=== PATIENT | female | born 1970 | race Caucasian/White ===

== ENCOUNTER 2018-06-07 09:35 | Inpatient (IN) ==
--- NOTE | 2018-05-08 08:33 | History & Physical Report ---
Date of Service May 08, 2018 Date of Surgery 06-07-18 Assessment & Plan (1) Osteoarthritis of left knee: Risks and benefits of procedure discussed in detail today, patient would like to proceed with a left total knee replacement @ [facility] on 06-07-18 as scheduled. will obtain medical clearance prior to surgery as well as obtain PATs at [facility]. Will place on ASA 81mg po bid x 1 month post op, f/u 2 weeks post op for routine post-operative care and xray, sooner if having any problems. will make arrangements for HHPT at the time of discharge. History of Present Illness Chief Complaint: left knee pain Primary Care Provider: NO PCP Ms Self is a 47 year old female who is here for a follow up of left knee pain, presents for pre-op evaluation prior to left total knee replacement on 06/07/18. She states that the symptoms have been chronic non-traumatic. The symptoms occur constantly with intermittent worsening. Currently the patient states that the symptoms are moderate-severe. The pain is described as aching and deep with occasional sharp pain. She rates her current pain as 6/10 and her worst is 8/10. The symptoms are aggravated by daily activities including walking, daily activities, first steps while awake and kneeling. In addition to knee pain, she is also experiencing difficulty bending, limping, instability, stiffness and weakness. Pt ambulates with straight cane. The patient has had a previous x-ray and bone scan. Prior pain medications include Tylenol as well as Ibuprofen and Aleve. Patient has had previous therapy. She has had prior arthroscopic surgery. Pt. had Left knee surgery July 2017 and Right knee surgery [address] Dean with continued pain and ongoing problems. Allergies Allergy/AdvReac Type Severity Reaction Status Date / Time diphenhydramine AdvReac Unknown AGITATION Verified 04/26/18 11:43 Home Medications Home Medications Medication Instructions Recorded Confirmed Type albuterol sulfate [Ventolin HFA] 2 puff INHALATION QID PRN 04/26/18 04/26/18 History amitriptyline 150 mg PO HS 04/26/18 04/26/18 History bupropion HCl [Wellbutrin SR] 150 mg PO BID 04/26/18 04/26/18 History furosemide [Lasix] 40 mg PO QAM 04/26/18 04/26/18 History levothyroxine [Synthroid] 175 mcg PO QAM 04/26/18 04/26/18 History mirabegron [Myrbetriq] 25 mg PO QAM 04/26/18 04/26/18 History pantoprazole [Protonix] 40 mg PO QAM 04/26/18 04/26/18 History propranolol 160 mg PO QAM 04/26/18 04/26/18 History topiramate [Topamax] 50 mg PO BIDM 04/26/18 04/26/18 History Past Med/Surg History Medical History Anxiety Asthma Depression GERD (gastroesophageal reflux disease) Hypothyroidism Migraine Rheumatoid arthritis Urinary incontinence Surgical History History of ankle surgery x2 History of cholecystectomy History of hysterectomy total History of surgery vocal cords- ? patient think d/t goiters unsure Hx of arthroscopic knee surgery both Hx of shoulder surgery right Hx of tooth extraction Family History Mother FHx: cancer Mother Family history of diabetes mellitus Social History Preferred Language: Icelandic Communication Ability: Effective Beliefs That Will Affect Care: None Current Living Situation: Alone Other Information That Helps Us Care for You: No Feels Safe at Home: Yes Safety Concerns: Feels Safe At This Time Smoking Status: Current every day smoker Hx Alcohol Use: No Hx Substance Use: No Review of Systems All systems reviewed & are unremarkable except as noted in HPI & below Constitutional: no fever, no chills and no sweats Respiratory: no cough, no dyspnea and no dyspnea on exertion Cardiovascular: no chest pain, no dyspnea and no orthopnea Gastrointestinal: no nausea and no vomiting Integumentary: no rash and no lesions Physical Exam Vital Signs (Past 24 Hours): Ht: 5ft 8inches Wt: 136kg BMI: 45.6 BP: 122/76 Pulse: 78 Constitutional: WD/WN, vitals as above no acute distress Respiratory: normal respiratory effort, lungs clear to auscultation no respiratory distress, no labored breathing and does not use accessory muscles Cardiovascular: RRR, no murmur, no edema Gastrointestinal (Abdomen): normal bowel sounds, soft, nontender, no hepatosplenomegaly Musculoskeletal: Left Knee Physical Exam Patient ambulates with a limp, uses a cane, overall varus alignment. There is no erythema or warmth, no atrophy or ecchymosis noted, mild suprapatellar effusion, maximum tenderness over her medial joint line negative patellar apprehension , mild crepitation with motion, suyapa's Negative, posterior drawer negative. positive atilio's medially, negative anterior drawer, knee stable with valgus/varus stress. no extensor lag. pain with active range of motion, AROM 0/3/110, Passive ROM 0/3/115. No pain with active/passive ROM of ankle. Lower Extremity Strength normal. Lower Extremity Neuro-vascular is normal Results & Data Diagnostic Findings Left Knee X-ray on 04-03-18 showing advanced degenerative changes to the left knee, greatest medial compartment, showing joint space narrowing, osteophyte formation and subchondral sclerosis. no acute bony pathology noted. no loose bodies noted.
--- NOTE | 2018-05-08 11:02 | PAT Medication Instructions ---
Medication Instructions Date of Service May 08, 2018 Home Medications albuterol sulfate [Ventolin HFA] 2 puff INHALATION QID NEEDED amitriptyline 150 mg PO HS bupropion HCl [Wellbutrin SR] 150 mg PO BID furosemide [Lasix] 40 mg PO QAM levothyroxine [Synthroid] 175 mcg PO QAM mirabegron [Myrbetriq] 25 mg PO QAM pantoprazole [Protonix] 40 mg PO QAM propranolol 160 mg PO QAM topiramate [Topamax] 50 mg PO BIDM DO NOT take the morning of surgery furosemide [Lasix] 40 mg PO QAM mirabegron [Myrbetriq] 25 mg PO QAM Take morning of surgery With a small sip of water, OTHERWISE NOTHING TO EAT OR DRINK AFTER MIDNIGHT: albuterol sulfate [Ventolin HFA] 2 puff INHALATION QID NEEDED bupropion HCl [Wellbutrin SR] 150 mg PO BID levothyroxine [Synthroid] 175 mcg PO QAM pantoprazole [Protonix] 40 mg PO QAM propranolol 160 mg PO QAM topiramate [Topamax] 50 mg PO BIDM Take evening before surgery albuterol sulfate [Ventolin HFA] 2 puff INHALATION QID NEEDED amitriptyline 150 mg PO HS bupropion HCl [Wellbutrin SR] 150 mg PO BID topiramate [Topamax] 50 mg PO BIDM Other Notes If you have any questions please call us at [phone] or [phone] or [phone] or [phone]
--- NOTE | 2018-05-08 13:09 | Anesthesiology Consultation ---
Date of Service May 08, 2018 Assessment & Plan (1) Encounter for pre-operative examination: Chart Review Chart Review: Acceptable Risk for Surgery and Patient seen in Pre Admission Testing Consults Requested medical (Dr. Olsen ([facility]) Patient was seen at PCP's office on 05/11/18. Per note, "Patient is optimized for the surgery" Teaching & Discussion Pre-Anesthesia Teaching/Discussion Notes: Instructed NPO after midnight before surgery, except medications with 15 cc of water. Medication instructions provided according to the PAT guidelines. History Surgery Operation Date: 06/07/18 08:30 Proposed Procedures p Left Total Knee Arthroplasty - Carlitos Chavez DO Height/Weight Height: 5 ft 8 in Weight: 135.3 kg Allergies Allergy/AdvReac Type Severity Reaction Status Date / Time diphenhydramine AdvReac Unknown AGITATION Verified 04/26/18 11:43 Medications Home Medications Medication Instructions Recorded Confirmed Last Taken albuterol sulfate [Ventolin HFA] 2 puff INHALATION QID PRN 04/26/18 04/26/18 Unknown amitriptyline 150 mg PO HS 04/26/18 04/26/18 Unknown bupropion HCl [Wellbutrin SR] 150 mg PO BID 04/26/18 04/26/18 Unknown furosemide [Lasix] 40 mg PO QAM 04/26/18 04/26/18 Unknown levothyroxine [Synthroid] 175 mcg PO QAM 04/26/18 04/26/18 Unknown mirabegron [Myrbetriq] 25 mg PO QAM 04/26/18 04/26/18 Unknown pantoprazole [Protonix] 40 mg PO QAM 04/26/18 04/26/18 Unknown propranolol 160 mg PO QAM 04/26/18 04/26/18 Unknown topiramate [Topamax] 50 mg PO BIDM 04/26/18 04/26/18 Unknown Past Medical History Medical History Anxiety Asthma Depression GERD (gastroesophageal reflux disease) Hypothyroidism Migraine Rheumatoid arthritis Urinary incontinence Past Family History Family History Mother FHx: cancer Mother Family history of diabetes mellitus Past Surgical History Surgical History History of ankle surgery x2 (RIGHT) History of cholecystectomy History of hysterectomy total History of surgery vocal cords Hx of arthroscopic knee surgery both Hx of shoulder surgery RIGHT HEMIARTHROPLASTY 01/04/11 - GRADE II VIEW WITH MAC #3, ATRAUMATIC INTUBATION WITH 7.0 ETT Hx of tooth extraction Past Anesthesia History No Hx of Anesthesia Complications and No Family Hx of Anesthesia Complications History of PONV No Motion Sickness Screening History of Motion Sickness: No Social History Smoking Status: Current every day smoker tobacco type: cigarettes Smoking cigarettes per day: 1/2-1 pack per day x 38 years Do You Dip or Chew Tobacco: No Hx Alcohol Use: No Hx Substance Use: No Exercise / Class Metabolic Activity II 4-5 Yardwork/Stairs/Walk up hill (Able to climb FOS. Climbs stairs into her apt several times per day. Denies CP or SOB. ) Review of Systems Patient denies chest pain, shortness of breath, dyspnea on exertion, cough, palpitations. +Joint pain (knees, ankle, shoulders, etc) +acid reflux (controlled with medications) +wheezing (rarely, if she does it resolves with use of albuterol) Physical Exam Vital Signs BP: 110/68 P: 70 R: 20 T: 98.2 SPO2: 98% on RA Constitutional + morbidly obese ENMT Mouth: + dentures (Uppers only) and + edentulous Thyromental Distance: < 3.5 Finger Breadths (3) Mallampati Class: II Neck normal visual inspection and trachea midline; neck extension not limited Respiratory normal respiratory effort Auscultation: lungs clear to auscultation bilaterally Cardiovascular Rate/Rhythm: regular rate and regular rhythm Heart Sounds: no murmur Vessels: no carotid bruit Neurologic moves all extremities Psychiatric Orientation: alert and oriented x 3 Testing Electrocardiogram Date: 05/08/18 Findings: + NSR @ (72) Prolonged QT. When compared with ECG of 12/18/10, QRS duration has increased. Chest X-Ray Date: 05/08/18 Findings: + NAD FINDINGS: A few linear densities at the left lung base suggestive of scarring or atelectasis. The lungs are otherwise clear. No pleural effusions. No pneumothorax. The heart is normal in size. There is a right total shoulder arthroplasty. IMPRESSION: No acute process. Laboratory Results 05/08/18 13:39 05/08/18 13:39 Blood Type A Negative 05/08/18 13:39 Antibody Screen NEGATIVE 05/08/18 13:39 PT 10.4 Seconds (9.0-12.0) 05/08/18 13:39 INR 1.0 (0.9-1.1) 05/08/18 13:39 APTT 30.0 Seconds (21.0-31.0) 05/08/18 13:39
[2018-05-08 14:24] LABS: Basophils # (auto) 0.09 K/uL (0-0.2); Basophils % (auto) 1.1 %; Eosinophils # (auto) 0.38 K/uL (0-0.5); Eosinophils % (auto) 4.6 %; Hematocrit (blood only) 45.3 % (37-47); Hemoglobin 15.2 g/dL (12.0-16.0); Immature Granulocytes # (auto) 0.01 K/uL (0.00-0.02); Immature Granulocytes % (auto) 0.1 %; Lymphocytes # (auto) 3.07 K/uL (1.2-3.4); Lymphocytes % (auto) 36.9 %; Mean Corpuscular Hgb Conc 33.6 g/dL (32-36); Mean Corpuscular Volume 89.5 fL (80-100); Mean Platelet Volume 12.5 fL (7.4-10.4); Monocytes # (auto) 0.56 K/uL (0.11-0.59); Monocytes % (auto) 6.7 %; Neutrophils # (auto) 4.21 K/uL (1.4-6.5); Neutrophils % (auto) 50.6 %; Platelet Count 244 K/uL (130-400); RDW Coefficient of Variation 13.2 % (11.5-14.5); Red Blood Count 5.06 M/uL (4.2-5.4); White Blood Count 8.32 K/uL (4.8-10.8)
--- NOTE | 2018-05-08 14:29 | XRay Report ---
XR chest Pre-admission PA/Lat HISTORY: Preop. COMPARISON: Chest 12/18/2010. FINDINGS: A few linear densities at the left lung base suggestive of scarring or atelectasis. The pat gs are otherwise clear. No pleural effusions. No pneumothorax. The heart is normal in size. There is a right total shoulder arthroplasty. IMPRESSION: No acute process. Electronically signed by: Jaycob Gallegos M.D. 05/08/2018 2:27 PM
[2018-05-08 14:33] LABS: BUN Creatinine Ratio 7.9 (10-20); Creatinine Clr Calc Pharmacy 94.7 ml/min; Est GFR (African American) 71.9; Potassium 4.1 mmol/L (3.5-5.1)
[2018-05-08 14:44] LABS: Partial Thromboplastin Ratio 1.1; Prothrombin Time 10.4 Seconds (9.0-12.0)
[~2018-06-07 09:35] MED LIST: ACETAMINOPHEN 500 MG TAB PO SCH; BUPIVACAINE 0.5 % 5 MG/1 ML PF 10ML VIAL ONE; CEFAZOLIN 3000MG 65 ML IV SCH; CeleBREX 200 MG CAP PO SCH; FAMOTIDINE 20 MG TAB PO SCH; GABAPENTIN 300 MG x 3 PO SCH; LR 500ML BOLUS, THEN 15ML/HR IV SCH; ROPIVACAINE 0.5% 5 MG/ML 30 ML VIAL ONE; ROPIVACAINE 0.5% HCL/PF 150 MG, BUPIVACAINE 0.5% MPF 30 ML, EPINEPHrine 30MG/30ML (OR U... INFIL SCH; TRANEXAMIC ACID 1,000 MG **IV Intra-op IV SCH; TRANEXAMIC ACID 1,000 MG **IV Pre-op IV SCH; dexAMETHasone 4 MG TAB PO SCH
[2018-06-07] MEDS ORDERED: MIDAZOLAM HCL 1 MG/ML 2ML VIAL ONE (10:17)
[2018-06-07] MEDS ORDERED: fentaNYL citrate 100 MCG/2 ML VIAL ONE (10:18)
[2018-06-07] MEDS ORDERED: ORTHO JOINT ANESTHETIC ONE (11:53)
[2018-06-07] MEDS ORDERED: POVIDONE-IODINE OP SOLN 30 ML BTL ONE (11:53)
[2018-06-07] MEDS ORDERED: BACITRACIN INJ 50,000 UNIT VIAL ONE (11:53)
--- NOTE | 2018-06-07 12:20 | History & Physical Bridge Note ---
Date of Service June 07, 2018 History & Physical Bridge Note I have examined the patient, reviewed the History & Physical and in the interval since the performance of the History & Physical I have noted the following changes of clinical significance: no changes noted
[2018-06-07] MEDS ORDERED: HYDROmorphone INJ 1 MG/ML SYRINGE IV PRN (12:22)
[2018-06-07] MEDS ORDERED: ATROPINE SULFATE 0.1 MG/ML 10ML SYR IV PRN (12:22)
[2018-06-07] MEDS ORDERED: ePHEDrine sulfate 50 MG/ML AMP IV PRN (12:22)
[2018-06-07] MEDS ORDERED: PROPOFOL IV EMULSION 10 MG/ML 20 ML VIAL IV ONE ×3 (12:52→13:48)
[2018-06-07] MEDS ORDERED: LIDOCAINE HCL 2% 2 ML VIAL/AMP(20MG/ML) INFIL ONE (12:52)
--- NOTE | 2018-06-07 13:54 | Operative Report ---
Post Operative Report Pre & Post Diagnosis Operation Date: 06/07/18 12:20 Pre-Op Diagnosis: Left Knee Osteoarthritis Post-Op Diagnosis: Left Knee Osteoarthritis Procedure Operation Date: 06/07/18 12:20 Actual Procedures p Left Total Knee Arthroplasty(Left) utilizing Carlie persona size 10 left narrow tibia size E left bearing 11 mm medially constrained patella 31 x 8 asymmetric- Carlitos Chavez DO Surgeon Carlitos Chavez DO Academic Support Director Humberto TOLENTINO Estimated Blood Loss 5 Findings Consistent with Post-Op Diagnosis Patient presents with severe end-stage tricompartmental degenerative joint disease times surgery of the noted subchondral sclerosis marginal osteophytes eburnated bone with varus alignment and moderate to large effusion patient is failed attempted conservative management the above intraoperative findings were noted. Specimens Bone and cartilage Drains Medium bore Hemovac Complications none Disposition Accompanied Patient To Recovery: No Disposition: Recovery Room Indications Patient presents after failed attempted conservative management including physical therapy anti-inflammatories relative rest activity modification corticosteroid injection Visco supplementation bracing patient had a long- standing history of progressive DJD of bilateral knees left greater than right patient presents today for left total knee arthroplasty Description of Procedure After proper prepping draping the left lower extremity anterior midline incision made over the region of the extensor mechanism dissection was carried down to subcutaneous tissues to the region of the extensor mechanism medial parapatellar incision made patella was subsequently subluxed lateralward the proximal tibia was exposed after release of the most proximal aspect of the medial capsular fibers the patella was subsequently everted and was a subperiosteal release was performed along the lateral margin the patella was subsequently cut utilizing a freehand method and was prepared to a size 31 oval patella the proximal tibia and distal femur now being exposed the custom alignment guide was placed on the distal femur distal femoral drill holes were placed the subsequently the distal femoral cutting block was placed the distal femoral cut was made the for 1 block was placed on the distal aspect of the femur and appropriate anterior posterior anterior posterior chamfers were all cut the proximal tibia was subsequently evaluated the medial lateral meniscal remnants were excised the proximal tibial alignment guide was placed pins were placed in socially the proximal tibial cutting block was placed at the proximal tibial osteotomy cut was made meticulous attention was palpated we will osteophytes after thorough evaluation of the proximal tibia the tibial rotation was evaluated after obtaining appropriate tibial position a size E tibial left was placed with subsequent fix the proximal tibia proximal appropriate punches were used the femur was then placed a narrow size 10 femur with a size E tibia and an 11 mm bearing gave excellent stability in both extension and flexion mid flexion no instability was noted through any range of motion subsequently the wound was irrigated with copious amounts of sterile saline solution the final components were socially prepared at the back table socially the proximal tibia was cemented size E left tibia the distal femur was cemented utilizing a size 10 narrow proximal tibia bearing 11 mm medial constrained bearing was placed the the patella was subsequently placed with a 31 x 8 mm asymmetric patella was irrigated Sterile Saline Solution Medium Bore Hemovac Was Placed in the Deep Wound the Medial Parapatellar Incision Closed with #1 Vicryl Subcuticular 2-0 Vicryl Skin Was Closed with a Running Subcuticular Suture of 3-0 Monocryl a Sterile Compressive Dressing Was Placed As Well As As Well As a Dermabond Pernio Dressing Was Placed Sterile Compressive Dressings Placed Patient Taken Recovery in Stable Condition Please Note Humberto TOLENTINO Was Necessary for Prepping Draping Retraction Wound Closure of the Fascia Subcu and Skin I attest to the content of the Intraoperative Record and any orders documented therein. Any exceptions are noted below.
--- NOTE | 2018-06-07 15:07 | Anesthesiology Progress Note ---
Date of Service June 07, 2018 Anesthesia Post Procedure Vital Signs Vital Signs: Temp Pulse Pulse Pulse Resp BP BP 06/07/18 15:01 66 20 131/80 06/07/18 15:00 67 24 06/07/18 14:57 67 13 124/83 06/07/18 14:55 66 18 06/07/18 14:51 66 18 123/83 06/07/18 14:50 67 17 06/07/18 14:47 67 21 110/73 06/07/18 14:45 66 21 06/07/18 14:41 66 14 106/78 06/07/18 14:40 36.0 C L 66 69 17 106/73 06/07/18 10:16 37.0 C 73 20 123/90 Pulse Ox 06/07/18 15:01 98 06/07/18 15:00 99 06/07/18 14:57 99 06/07/18 14:55 98 06/07/18 14:51 98 06/07/18 14:50 98 06/07/18 14:47 100 06/07/18 14:45 99 06/07/18 14:41 100 06/07/18 14:40 98 06/07/18 10:16 97 Pain Intensity Left Knee: Pain Intensity: 0 Notes Mental Status: alert / awake / arousable Patient Amnestic to Procedure: Yes Nausea / Vomiting: adequately controlled Pain: adequately controlled Airway Patency, RR, SpO2: stable & adequate BP & HR: stable & adequate Hydration State: stable & adequate Neuraxial Anesthesia: was administered and sensory block is resolving Anesthetic Complications: no major complications apparent
--- NOTE | 2018-06-07 15:15 | XRay Report ---
XR knee LT 2V routine HISTORY: 47 years-old Female Surgical Post Op left knee total joint arthroplasty. History of degener ative joint disease. COMPARISON: None available TECHNIQUE: 2 views of the left knee FINDINGS: Left knee total joint arthroplasty with patellar resurfacing. Alignment is satisfactory without acute fracture or dislocation. Surgical drainage catheter is noted along with expected postsurgical soft t issue swelling and deep tissue air. IMPRESSION: Left knee total joint arthroplasty and patella resurfacing with satisfactory alignment. The above report was generated using voice recognition software. It may contain grammatical, syntax o r spelling errors. Electronically signed by: Tee Wood M.D. 06/07/2018 3:14 PM
[2018-06-07] MEDS ORDERED: METOCLOPRAMIDE HCL INJ 5 MG/ML 2 ML VIAL IV PRN (15:37)
[2018-06-07] MEDS ORDERED: NALOXONE HCL 0.4 MG/1 ML VIAL/CARP IV PRN (15:37)
[2018-06-07] MEDS ORDERED: MAGNESIUM HYDROXIDE SUSP 30 ML UDC PO PRN (15:37)
[2018-06-07] MEDS ORDERED: SODIUM CHLORIDE 0.9% 1000ML 1,000 ML IV SCH (15:37)
[2018-06-07] MEDS ORDERED: ALBUTEROL HFA 8 GM INHALER INH PRN (15:37)
[2018-06-07] MEDS ORDERED: ONDANSETRON INJ 2 MG/ML 2 ML VIAL IV PRN (15:37)
[2018-06-07] MEDS ORDERED: BISACODYL 10 MG SUPP PR PRN (15:37)
[2018-06-07] MEDS: KETOROLAC TROMETHAMINE 15 MG/ML VIAL IV SCH ×2 (16:26→21:16)
[2018-06-07] MEDS: TOPIRAMATE 50 MG TAB PO SCH (17:47)
[2018-06-07] MEDS ORDERED: IBUPROFEN 600 MG TAB PO SCH (19:45)
[2018-06-07] MEDS: CEFAZOLIN 2000MG 2,000 MG/15 ML SYR IV SCH (21:14)
[2018-06-07] MEDS: OXcarbazepine 150 MG TABLET PO SCH (21:15)
[2018-06-07] MEDS: DOCUSATE SODIUM 100 MG CAP PO SCH (21:15)
[2018-06-07] MEDS: SENNA 8.6 MG TAB PO SCH (21:15)
[2018-06-07] MEDS: AMITRIPTYLINE HCL 50 MG TAB PO SCH (21:15)
[2018-06-07] MEDS: ASPIRIN 81 MG ECTAB PO SCH (21:15)
[2018-06-07] MEDS: BuPROPion SR 150 MG TABCR PO SCH (21:15)
[2018-06-07] MEDS: ACETAMINOPHEN 500 MG TAB PO SCH (21:16)
[2018-06-07] MEDS: OXYCODONE HCL IR 5 MG TAB (IMMEDIATE RELEASE) PO PRN (23:50)
[2018-06-08] MEDS: KETOROLAC TROMETHAMINE 15 MG/ML VIAL IV SCH ×2 (04:39→09:14)
[2018-06-08] MEDS: CEFAZOLIN 2000MG 2,000 MG/15 ML SYR IV SCH (04:39)
[2018-06-08 06:13] LABS: Hematocrit (blood only) 38.9 % (37-47); Mean Corpuscular Hgb Conc 33.4 g/dL (32-36); Mean Corpuscular Volume 86.3 fL (80-100); Mean Platelet Volume 11.7 fL (7.4-10.4); Platelet Count 231 K/uL (130-400); RDW Coefficient of Variation 13.6 % (11.5-14.5); RDW Standard Deviation 43.2 fL (36.4-46.3); Red Blood Count 4.51 M/uL (4.2-5.4); White Blood Count 11.94 K/uL (4.8-10.8)
[2018-06-08] MEDS: ACETAMINOPHEN 500 MG TAB PO SCH ×3 (06:14→21:53)
[2018-06-08] MEDS: LEVOTHYROXINE SODIUM 175 MCG TABLET PO SCH (06:15)
[2018-06-08 06:44] LABS: BUN Creatinine Ratio 13.2 (10-20); Calcium 8.5 mg/dl (8.5-10.1); Est GFR (African American) 87.6; Est GFR (Non-African American) 75.6; Potassium 3.8 mmol/L (3.5-5.1)
--- NOTE | 2018-06-08 07:10 | Orthopedic Progress Note ---
Date of Service June 08, 2018 Assessment & Plan (1) Status post total left knee replacement: POD #1 s/p Left TKA pt/ot dvt proph with [facility]/SCD/ASA plan for d/c home with HHPT when stable, likely after PT Tuesday. pain control with Oxy, IV Toradol, Tylenol, prn Dilaudid. Subjective POD #1 s/p Left TKA denies Fever, chills. denies CP/SOB pain currently 3/10 Physical Exam Vital Signs (Past 24 Hours): Last Vital Signs Temp 36.8 C 06/08/18 03:29 Pulse 81 06/08/18 03:29 Resp 16 06/08/18 03:29 BP 108/68 06/08/18 03:29 Pulse Ox 95 06/08/18 03:29 Constitutional: WD/WN, vitals as above no acute distress Musculoskeletal: Left Knee: NVDI, calf SNT, negative kee sign. DP palpable, able to wiggle toes/ankle movement without difficulty. dressing clean dry and intact. Vital Signs Temp 36.8 C 06/08/18 03:29 Pulse 81 06/08/18 03:29 Resp 16 06/08/18 03:29 BP 108/68 06/08/18 03:29 Pulse Ox 95 06/08/18 03:29 Intake & Output 06/07/18 06/08/18 06/08/18 18:59 06:59 18:59 Intake Total 1385 / 2385 1000 / 2385 Output Total 525 / 1127 602 / 1127 Balance 860 / 1258 398 / 1258 Weight 131.905 kg Intake: IV 885 / 885 Ancef 3000MG 6 5 ml @ 130 mls/hr 65 / 65 IV PREOP CL R x#:[id number] Lr 1,000 ml @ 15 mls/hr IV . 600 / 600 Q24H CL Rx#:[id number] IV Perioperative 500 / 500 Oral 1000 / 1000 Output: Urine 500 / 901 401 / 901 Drain Output 25 / 225 200 / 225 Left Knee Hemo vac 25 / 225 200 / 225 # Bowel Movement s Other: # Unmeasured Voi ds 1 Results & Data Laboratory Results Laboratory Results WBC 11.94 K/uL (4.8-10.8) H 06/08/18 05:38 RBC 4.51 M/uL (4.2-5.4) 06/08/18 05:38 Hgb 13.0 g/dL (12.0-16.0) 06/08/18 05:38 Hct 38.9 % (37-47) 06/08/18 05:38 MCV 86.3 fL (80-100) 06/08/18 05:38 MCH 28.8 pg (25-34) 06/08/18 05:38 MCHC 33.4 g/dL (32-36) 06/08/18 05:38 RDW Std Deviation 43.2 fL (36.4-46.3) 06/08/18 05:38 RDW Coeff of Timothy 13.6 % (11.5-14.5) 06/08/18 05:38 Plt Count 231 K/uL (130-400) 06/08/18 05:38 MPV 11.7 fL (7.4-10.4) H 06/08/18 05:38 Immature Gran % (Auto) 0.1 % 05/08/18 13:39 Neut % (Auto) 50.6 % 05/08/18 13:39 Lymph % (Auto) 36.9 % 05/08/18 13:39 Gray % (Auto) 6.7 % 05/08/18 13:39 Eos % (Auto) 4.6 % 05/08/18 13:39 Baso % (Auto) 1.1 % 05/08/18 13:39 Immature Gran # (Auto) 0.01 K/uL (0.00-0.02) 05/08/18 13:39 Neut # (Auto) 4.21 K/uL (1.4-6.5) 05/08/18 13:39 Lymph # (Auto) 3.07 K/uL (1.2-3.4) 05/08/18 13:39 Gray # (Auto) 0.56 K/uL (0.11-0.59) 05/08/18 13:39 Eos # (Auto) 0.38 K/uL (0-0.5) 05/08/18 13:39 Baso # (Auto) 0.09 K/uL (0-0.2) 05/08/18 13:39 PT 10.4 Seconds (9.0-12.0) 05/08/18 13:39 INR 1.0 (0.9-1.1) 05/08/18 13:39 APTT 30.0 Seconds (21.0-31.0) 05/08/18 13:39 PTT Ratio 1.1 05/08/18 13:39 Sodium 144 mmol/L (136-145) 06/08/18 05:38 Potassium 3.8 mmol/L (3.5-5.1) 06/08/18 05:38 Chloride 114 mmol/L (98-107) H 06/08/18 05:38 Carbon Dioxide 24 mmol/L (21-32) 06/08/18 05:38 Anion Gap 6.0 (3-11) 06/08/18 05:38 BUN 12 mg/dl (7-18) 06/08/18 05:38 Creatinine 0.90 mg/dl (0.6-1.2) 06/08/18 05:38 Est Cr Clr Drug Dosing 10.0 ml/min 06/08/18 05:38 Est GFR ( Amer) 87.6 06/08/18 05:38 Est GFR (Non-Af Amer) 75.6 06/08/18 05:38 BUN/Creatinine Ratio 13.2 (10-20) 06/08/18 05:38 Glucose 128 mg/dl (70-99) H 06/08/18 05:38 Calcium 8.5 mg/dl (8.5-10.1) 06/08/18 05:38 Blood Type A Negative 05/08/18 13:39 Antibody Screen NEGATIVE 05/08/18 13:39 Diagnostic Findings XR knee LT 2V routine HISTORY: 47 years-old Female Surgical Post Op left knee total joint arthroplasty. History of degenerative joint disease. COMPARISON: None available TECHNIQUE: 2 views of the left knee FINDINGS: Left knee total joint arthroplasty with patellar resurfacing. Alignment is satisfactory without acute fracture or dislocation. Surgical drainage catheter is noted along with expected postsurgical soft tissue swelling and deep tissue air. IMPRESSION: Left knee total joint arthroplasty and patella resurfacing with satisfactory alignment.
[2018-06-08] MEDS: ASPIRIN 81 MG ECTAB PO SCH ×2 (09:12→20:38)
[2018-06-08] MEDS: BuPROPion SR 150 MG TABCR PO SCH ×2 (09:12→20:38)
[2018-06-08] MEDS: OXcarbazepine 150 MG TABLET PO SCH ×2 (09:12→20:38)
[2018-06-08] MEDS: MIRABEGRON ER 25 MG TAB PO SCH (09:13)
[2018-06-08] MEDS: TOPIRAMATE 50 MG TAB PO SCH ×2 (09:13→13:17)
[2018-06-08] MEDS: PROPRANOLOL HCL LA 80 MG CAPCR PO SCH (09:16)
[2018-06-08] MEDS: DOCUSATE SODIUM 100 MG CAP PO SCH ×2 (09:17→20:38)
[2018-06-08] MEDS: MULTIVITAMIN TAB PO SCH (09:17)
[2018-06-08] MEDS: OXYCODONE HCL IR 5 MG TAB (IMMEDIATE RELEASE) PO PRN ×2 (09:50→23:29)
[2018-06-08] MEDS: HYDROmorphone INJ 1 MG/ML SYRINGE IV PRN ×2 (11:07→20:01)
[2018-06-08] MEDS: SENNA 8.6 MG TAB PO SCH (20:35)
[2018-06-08] MEDS: CeleBREX 200 MG CAP PO SCH (20:37)
[2018-06-08] MEDS: PANTOprazole 40 MG TAB PO SCH (20:37)
[2018-06-08] MEDS: AMITRIPTYLINE HCL 50 MG TAB PO SCH (21:51)
[2018-06-09] MEDS: ACETAMINOPHEN 500 MG TAB PO SCH ×2 (06:23→12:56)
[2018-06-09] MEDS: TOPIRAMATE 50 MG TAB PO SCH ×2 (06:24→12:54)
[2018-06-09] MEDS: LEVOTHYROXINE SODIUM 175 MCG TABLET PO SCH (06:24)
--- NOTE | 2018-06-09 07:17 | Orthopedic Progress Note ---
Date of Service June 09, 2018 Assessment & Plan (1) Status post total left knee replacement: POD #2 s/p Left TKA pt/ot dvt proph with [facility]/SCD/ASA plan for d/c home with HHPT, likely after PT today. pain control with Oxy, IV Toradol, Tylenol, prn Dilaudid. Subjective POD #2 s/p Left TKA denies Fever, chills. denies CP/SOB pain currently 06/14 Physical Exam Vital Signs (Past 24 Hours): Last Vital Signs Temp 36.8 C 06/08/18 23:12 Pulse 76 06/08/18 23:12 Resp 18 06/08/18 23:12 BP 116/80 06/08/18 23:12 Pulse Ox 95 06/08/18 23:12 Constitutional: WD/WN, vitals as above no acute distress Musculoskeletal: left knee: NVDI, calf SNT, negative kee sign. DP palpable, able to wiggle toes/ankle movement without difficulty. CHARMAINE dressing clean dry and intact. expected post-operative bruising noted.
--- NOTE | 2018-06-09 07:24 | Discharge Summary ---
Date of Service Date of Discharge: June 09, 2018 Date of Admission: 06/07/18 Admission HPI Per Admitting Provider Ms Self is a 47 year old female who is here for a follow up of left knee pain, presents for pre-op evaluation prior to left total knee replacement on 06/07/18. She states that the symptoms have been chronic non-traumatic. The symptoms occur constantly with intermittent worsening. Currently the patient states that the symptoms are moderate-severe. The pain is described as aching and deep with occasional sharp pain. She rates her current pain as 6/10 and her worst is 8/10. The symptoms are aggravated by daily activities including walking, daily activities, first steps while awake and kneeling. In addition to knee pain, she is also experiencing difficulty bending, limping, instability, stiffness and weakness. Pt ambulates with straight cane. The patient has had a previous x-ray and bone scan. Prior pain medications include Tylenol as well as Ibuprofen and Aleve. Patient has had previous therapy. She has had prior arthroscopic surgery. Pt. had Left knee surgery July 2017 and Right knee surgery [address] Dean with continued pain and ongoing problems. Principal Diagnosis left knee osteoarthritis Discharge Exam Constitutional WD/WN, vitals as above no acute distress Musculoskeletal left knee: NVDI, calf SNT, negative kee sign. DP palpable, able to wiggle toes/ankle movement without difficulty. CHARMAINE dressing clean dry and intact. expected post-operative bruising noted. Discharge Data Allergies Allergy/AdvReac Type Severity Reaction Status Date / Time diphenhydramine AdvReac Unknown AGITATION Verified 06/07/18 10:01 Consultations 06/07/18 15:37 Consult Case Management - Discharge Planning Routine Procedures Performed Operation Date: 06/07/18 12:20 Actual Procedures p Left Total Knee Arthroplasty(Left) - Carlitos Chavez DO Ordered Studies 06/07/18 05:00 US - OR guided needle placemen Routine Hospital Course (1) Status post total left knee replacement: POD #2 s/p Left TKA pt/ot dvt proph with VALENCIA/SCD/ASA plan for d/c home with HHPT, likely after PT today. pain control with Oxy, IV Toradol, Tylenol, prn Dilaudid. Patient was a same day admission after undergoing a successful left TKA. She tolerated the procedure well. Post-operatively, her activity was progressed and well tolerated. Please refer to daily progress notes and PT notes for complete details. After exam on 06/09/18, patient felt to be stable for discharge home with HHPT. Patient will f/u in the office in 2 weeks for further evaluation including x-rays and incision check, sooner if having any issues or concerns. Below are pertinent labs/studies during their hospital stay: Laboratory Results WBC 11.94 K/uL (4.8-10.8) H 06/08/18 05:38 RBC 4.51 M/uL (4.2-5.4) 06/08/18 05:38 Hgb 13.0 g/dL (12.0-16.0) 06/08/18 05:38 Hct 38.9 % (37-47) 06/08/18 05:38 MCV 86.3 fL (80-100) 06/08/18 05:38 MCH 28.8 pg (25-34) 06/08/18 05:38 MCHC 33.4 g/dL (32-36) 06/08/18 05:38 RDW Std Deviation 43.2 fL (36.4-46.3) 06/08/18 05:38 RDW Coeff of Timothy 13.6 % (11.5-14.5) 06/08/18 05:38 Plt Count 231 K/uL (130-400) 06/08/18 05:38 MPV 11.7 fL (7.4-10.4) H 06/08/18 05:38 Immature Gran % (Auto) 0.1 % 05/08/18 13:39 Neut % (Auto) 50.6 % 05/08/18 13:39 Lymph % (Auto) 36.9 % 05/08/18 13:39 Appling % (Auto) 6.7 % 05/08/18 13:39 Eos % (Auto) 4.6 % 05/08/18 13:39 Baso % (Auto) 1.1 % 05/08/18 13:39 Immature Gran # (Auto) 0.01 K/uL (0.00-0.02) 05/08/18 13:39 Neut # (Auto) 4.21 K/uL (1.4-6.5) 05/08/18 13:39 Lymph # (Auto) 3.07 K/uL (1.2-3.4) 05/08/18 13:39 Appling # (Auto) 0.56 K/uL (0.11-0.59) 05/08/18 13:39 Eos # (Auto) 0.38 K/uL (0-0.5) 05/08/18 13:39 Baso # (Auto) 0.09 K/uL (0-0.2) 05/08/18 13:39 PT 10.4 Seconds (9.0-12.0) 05/08/18 13:39 INR 1.0 (0.9-1.1) 05/08/18 13:39 APTT 30.0 Seconds (21.0-31.0) 05/08/18 13:39 PTT Ratio 1.1 05/08/18 13:39 Sodium 144 mmol/L (136-145) 06/08/18 05:38 Potassium 3.8 mmol/L (3.5-5.1) 06/08/18 05:38 Chloride 114 mmol/L (98-107) H 06/08/18 05:38 Carbon Dioxide 24 mmol/L (21-32) 06/08/18 05:38 Anion Gap 6.0 (3-11) 06/08/18 05:38 BUN 12 mg/dl (7-18) 06/08/18 05:38 Creatinine 0.90 mg/dl (0.6-1.2) 06/08/18 05:38 Est Cr Clr Drug Dosing 10.0 ml/min 06/08/18 05:38 Est GFR ( Amer) 87.6 06/08/18 05:38 Est GFR (Non-Af Amer) 75.6 06/08/18 05:38 BUN/Creatinine Ratio 13.2 (10-20) 06/08/18 05:38 Glucose 128 mg/dl (70-99) H 06/08/18 05:38 Calcium 8.5 mg/dl (8.5-10.1) 06/08/18 05:38 Blood Type A Negative 05/08/18 13:39 Antibody Screen NEGATIVE 05/08/18 13:39 Total Time Total Time Spent Total Time Spent (In Minutes): 20 Total Time Includes: Examination of the Patient, Discharge Planning and Medication Reconciliation Discharge Plan Discharge Items Patient Disposition: Home - Home Health Services Reason For Visit: Left Knee Osteoarthritis Discharge Diagnosis: Left Total Knee Replacement Condition: Good Discharge Goals: Decrease discomfort, Improve function and Increase independence Activity: Per 'Additional Instructions' section Lifting: Wait until after follow-up appointment Driving/Machine Use Comment: no driving until cleared by your surgeon. Weightbearing: Left weightbearing Weightbearing Comment: WBAT with walker Non-emergency contact: Primary Care Provider and Surgeon Call non-emergency contact if: you have any medication questions, your temperature is above 101, your wound has increased redness, your wound has increased drainage and your wound pain has increased Follow-up/Referrals: Joao Olsen DO [Primary Care Provider] - Diet: Regular Addtl Provider Instructions: ACTIVITY RECOMMENDATIONS: SELF CARE INSTRUCTIONS AFTER TOTAL KNEE REPLACEMENT A. You may need to continue a physical therapy program after discharge from the hospital. There are several options available to you. Your doctor will assist you in selecting the best one for you. 1. An out-patient facility 2 to 3 times a week for therapy or home therapy. 2. Continue working on all exercises taught to you in the hospital. Your goals should be to increase bending of your knee to 90 degrees and beyond and to fully straighten your knee. B. You may progress at your own pace from walking with a walker or crutches to a cane; then to no assistive devices. C. Make walking a part of your daily routine. Be up as much as comfortable with rest periods throughout the day. Rest with leg elevation is very important. Use the ice wrap frequently for the first 3-4 weeks. D. There are no restrictions on activities. 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 E. Wear the long elastic stockings (VALENCIA hose) 20 hours a day for 2 weeks after surgery. They can be removed several times a day for laundering and for a bath. F. You may shower, no tub baths until cleared by your doctor. SPECIAL CARE INSTRUCTIONS: VERY IMPORTANT TO READ AND REVIEW A. There are a few signs you need to watch for after you are home. Call [facility] if you notice any of the followin. Increased severe knee pain. Some pain is expected especially when you exercise. 2. Increased swelling in your leg or knee; pain or swelling of the calf muscle in either lower leg. 3. Any fluid drainage from the incision. 4. Shortness of breath or chest pain. B. Please call [facility] at if you have any concerns or questions about your operation or recovery. The doctor or his nurse will return your call promptly. C. You must take antibiotics before dental work, bladder, bowel or other surgery. Your doctor will provide you with a permanent care to carry describing this precaution. IMPORTANT: * REMEMBER TO TAKE ASPIRIN, 81 MG, TWICE DAILY FOR 4 WEEKS UNLESS OTHERWISE DIRECTED. THIS IS YOUR BLOOD THINNER. * HIGH RISK PATIENTS MAY BE PRESCRIBED A STRONGER BLOOD THINNER. THIS WILL BE PROVIDED AT DISCHARGE. * CALL IF INCREASED PAIN, REDNESS, DRAINAGE OR FEVER GREATER THAT 101. * WEAR VALENCIA HOSE 20 HOURS PER DAY FOR 2 WEEKS. * CHARMAINE Dressing- This is a large suction dressing covering your incision. This will help pull any excess drainage from the wound and allow your incision to heal properly. You may shower with this if you can keep the unit outside of the shower. If any bleeding or leakage is noted please call your doctor's office. This will remain on your incision for 7 days and then should be removed. This can be done yourself or by the home nursing staff if applicable. The entire unit is disposable once removed. Once removed, keep incision clean and dry. If redness or drainage is noted, please call your surgeon. ONCE CHARMAINE IS REMOVED, FOLLOW THESE INSTRUCTIONS: DERMABOND Prineo- This is a mesh tape dressing that is covered with glue. It should remain in place until the incision is properly healed, usually 10-14 days. This dressing is designed to naturally slough off. You may trim the excess mesh tape as it peels off. Incision may be briefly wet in a shower. Dry immediately by blotting with a clean, dry towel. Do not bath or swim until instructed by your doctor. Do not scratch, rub, or pick at the dressing. Do not apply any topical ointments or lotions until dressing is completely removed and/or instructed by your doctor. There may be a small piece of suture material at one end of your incision. Do not pull or trim this. If it is bothersome or catching on clothing, you may cover it with a band-aid. IF INCISION IS LEAKING THROUGH DRESSING, CALL THE OFFICE . FOLLOW UP VISIT: If appointment is not already scheduled: Please call [facility] to make a follow-up appointment for 2 weeks after your surgery at . Prescriptions: New aspirin [Ecotrin Low Strength] 81 mg Tablet,Delayed Release (Dr/Ec) 81 mg PO BID 30 Days Qty: 60 RF: 0 acetaminophen [Pain Reliever] 500 mg Tablet 1,000 mg PO Q8 14 Days Qty: 84 RF: 0 celecoxib [Celebrex] 200 mg Capsule 200 mg PO BID 30 Days Qty: 60 RF: 0 oxycodone 5 mg Tablet 5 - 10 mg PO Q6 PRN (Reason: pain) Qty: 30 RF: 0 docusate sodium 100 mg Capsule 100 mg PO BID 10 Days Qty: 20 RF: 0 cefadroxil 500 mg capsule 500 mg PO BID 10 Days Qty: 20 RF: 0 Continued furosemide [Lasix] 40 mg Tablet 40 mg PO QAM RF: 0 levothyroxine [Synthroid] 175 mcg Tablet 175 mcg PO QAM RF: 0 bupropion HCl [Wellbutrin SR] 150 mg Tablet Sustained-Release 12 Hr 150 mg PO BID RF: 0 propranolol 160 mg Capsule,Extended Release 24 Hr 160 mg PO QAM RF: 0 amitriptyline 150 mg Tablet 150 mg PO HS RF: 0 pantoprazole [Protonix] 40 mg Tablet,Delayed Release (Dr/Ec) 40 mg PO QAM RF: 0 albuterol sulfate [Ventolin HFA] 90 mcg/actuation Hfa Aerosol Inhaler 2 puff INHALATION QID PRN (Reason: breathing issues) RF: 0 topiramate [Topamax] 50 mg Tablet 50 mg PO BIDM RF: 0 Myrbetriq 25 mg Tablet Extended Release 24 Hr 25 mg PO QAM RF: 0 oxcarbazepine [Trileptal] 150 mg Tablet 150 mg PO BID RF: 0 Stand-Alone Forms: [facility] Discharge Orders: Discharge Order (Routine); Ordered 06/09/18 Ordered By: Humberto Carlos Admission Data Admit Date/Time: 06/07/18 14:38 Attending Provider: Carlitos Chavez Admit Provider: Carlitos Chavez Primary Care Provider: Joao Olsen Service: Surgical Services Other Pending Studies at Discharge: No
[2018-06-09] MEDS: OXYCODONE HCL IR 5 MG TAB (IMMEDIATE RELEASE) PO PRN ×2 (07:37→17:14)
[2018-06-09] MEDS: HYDROmorphone INJ 1 MG/ML SYRINGE IV PRN (09:29)
[2018-06-09] MEDS: MULTIVITAMIN TAB PO SCH (09:31)
[2018-06-09] MEDS: BuPROPion SR 150 MG TABCR PO SCH (09:31)
[2018-06-09] MEDS: PROPRANOLOL HCL LA 80 MG CAPCR PO SCH (09:32)
[2018-06-09] MEDS: DOCUSATE SODIUM 100 MG CAP PO SCH (09:32)
[2018-06-09] MEDS: PANTOprazole 40 MG TAB PO SCH (09:33)
[2018-06-09] MEDS: MIRABEGRON ER 25 MG TAB PO SCH (09:33)
[2018-06-09] MEDS: ASPIRIN 81 MG ECTAB PO SCH (09:33)
[2018-06-09] MEDS: CeleBREX 200 MG CAP PO SCH (09:34)
[2018-06-09] MEDS: OXcarbazepine 150 MG TABLET PO SCH (09:34)
== END 2018-06-09 17:41 | disposition home health service (06) | DRG 470 ==
LOC: ASU 09:35 → 3E 14:38